=== PATIENT | female | born 1955 | race Caucasian/White ===

== ENCOUNTER 2017-07-16 15:30 | Outpatient (RCR) | payer OTHER, SELFPAY ==
[2016-07-18 13:25] VITALS: BP 156/72; PULSE 63; RESP 18; TEMP 36.7; O2SAT 98; BMI 23.6
--- NOTE | 2016-07-18 13:40 | ONC.PN.ESTAB ---
- Chief Complaint 6 mo f/u Office Visit: 07/18/16 - Office Visit: Treatment Visit Location of Care: [facility] DIAGNOSIS: Clinical stage IB (T2, N1mi, MX), ER/AZ negative, HER2 amplified, grade 3 or poorly differentiated infiltrating ductal carcinoma of the left breast. - History of Present Illness History of Present Illness: BIRD LEMUS is a very pleasant 61 F with a history for 1. Clinical stage IB (T2, N1mi, MX), ER/AZ negative, HER2 amplified, grade 3 or poorly differentiated infiltrating ductal carcinoma of the left breast. S/P MRM and sentinel node biopsy 06/20/2011 and TRAM flap reconstruction 06/26/2011. S/P TCH therapy x6 cycles completed 12/26/2011. Herceptin maintenance initiated 01/02/2012. Adjuvant Herceptin completed as of 08/27/2012. 2. Revision reconstructed TRAM flap left breast with power assisted lipoplasty and excision of painful fat necrosis 03/07/2012. 3. Revision of left breast reconstruction with excision of painful fat necrosis lateral aspect of TRAM flap rotation and mastopexy 06/17/2012. 4. Right breast reconstruction with mastopexy 06/17/2012. - Interval History Interval History: BIRD LEMUS is presenting to the clinic today for routine 6 mo f/u and denies any concerns r/t today's visit. Specifically, she denies any unintentional weight loss, decreased appetite, new bone pain, abd pain, N/V, changes in her bowel habits and swelling/pain of her extremities. Notes chronic non productive cough she attributes to her antihypertensives. - Past Medical/Social History Cancer History Cancer: Breast cancer Past Medical History Past Medical History: Anemia,Diabetes mellitus,Hypertension Past Surgical History Surgical: Mastectomy,Tonsillectomy,Tubal ligation Other: multiple reconstruction surgeries-L breast Family History Paternal Past Medical History: Unknown Maternal Past Medical History: Unknown Maternal History of Cancer: Stomach cancer Social History Social History: No changes Smoking Status Never smoker - Review of Systems Constitutional:: Denies: Fever, Sweats, Weight loss, Appetite change, Chills Cardiovascular:: Denies: Chest pain, Palpitations, Dyspnea on exertion, Orthopnea, PND, Shortness of breath Respiratory: Denies: Cough, Hemoptysis, Shortness of Breath, Wheezing Gastrointestinal:: Denies: Abdominal pain, Nausea, Vomiting, Diarrhea, Constipation, Hematochezia Genitourinary: Denies: Dysuria, Hematuria, Pneumaturia, Flank pain Musculoskeletal:: Denies: Back pain, Myalgia, Arthralgia Skin: Denies: Rash, Skin Changes, Wounds Neurological:: Denies: Headache, Dizziness, Visual changes, Tinnitus, Hearing loss Psychiatric: Denies: Anxiety, Depression, Homicidal Ideations, Suicidal Ideations - Physical Exam General: Alert, Oriented x3, No apparent distress HEENT: Atraumatic, PERRLA, EOMI, Normocephalic Oropharynx:: Dry mucosa Neck:: Supple, Trachea midline. Negative for: JVD, bilateral Cardiac:: Regular rate, Regular rhythm, Normal S1, Normal S2. Negative for: Murmur Lungs: Clear to auscultation, Excusion symmetrical. Negative for: Rhonchi, Wheezes Abdomen:: Bowel sounds x 4, Soft, Non-tender, Non-distended. Negative for: Hepatosplenomegaly Extremities:: Negative for: Cyanosis, Edema Neurological: Neuro grossly intact Skin:: Negative for: Lesions, Rash, Petechiae, Ecchymosis Psychiatric:: Appropriate affect Lymphatics:: Negative for: Cervical lymphadenopathy, Supraclavicular lymphadenopathy, Axillary lymphadenopathy Breast:: No abnormalities noted - Right-sided breast is normal in appearance. No nodularity or masses are palpable. The left-sided breast has a TRAM flap that appears normal in contours. No nodularity is appreciated. Around the left axillary tail, there is a slight fullness that is appreciated. No hard masses are identified. Pathology Data: PATHOLOGICAL DATA: Medications: Prescriptions This Visit Medication Instructions Recorded Type Cefadroxil Hydrate [Duricef] 500 mg PO BID #8 capsule 03/17/13 Rx Hydrocodone/Acetaminophen [Vicodin 1 - 2 tablet PO 4X/DAY PRN PRN #15 03/17/13 Rx 5-300 mg Tablet] tablet L. Acidophilus/Pectin, [place] 1 each PO BID #10 tablet 03/17/13 Rx [Acidophilus-Pectin Captab] - Assessment/Plan Assessment and Plan: Ms. Bird Lemus has been treated for HER2 positive, ER/AZ negative breast carcinoma. Unilateral right breast mammogram obtained in May BIRADS category 2. Clinical breast exam today benign. Labs were obtained last week at [facility] and are not available at this time, however I will obtain those for thorough review. She is otherwise not endorsing any s/sx concerning for recurrence at this time. Per patient request, she would like to follow on an annual basis, as she also undergoes breast exams per her pcp yearly and blood work every six months. Thus I have recommended she continue monthly BSE and promptly report any changes in the interim. Molly Ordoñez, EVA, [employer], AOCNP
[2017-07-16 15:27] VITALS: BP 132/71; PULSE 68; RESP 16; TEMP 36.8; O2SAT 99; BMI 22.4
--- NOTE | 2017-07-16 15:52 | ONC.OV1 ---
Subjective - Date of Service Date of Service:: 07/16/17 - Chief Complaint F/u for L breast cancer. - History of Present Illness History of Present Illness: BIRD CORONA is a very pleasant 61 F with a history for 1. Clinical stage IB (pT1c, N1mi, MX), ER/ND negative, HER2 amplified, grade 3 or poorly differentiated infiltrating ductal carcinoma of the left breast. S/P MRM and sentinel node biopsy 06/20/2011 and TRAM flap reconstruction 06/26/2011. S/P TCH therapy x6 cycles completed 12/26/2011. Herceptin maintenance initiated 01/02/2012. Adjuvant Herceptin completed as of 08/27/2012. 2. Revision reconstructed TRAM flap left breast with power assisted lipoplasty and excision of painful fat necrosis 03/07/2012. 3. Revision of left breast reconstruction with excision of painful fat necrosis lateral aspect of TRAM flap rotation and mastopexy 06/17/2012. 4. Right breast reconstruction with mastopexy 06/17/2012. She is on observation, comes in for follow up. - Past Medical/Social History Past Medical History Past Medical History: Anemia,Diabetes mellitus,Hypertension Cancer: Breast cancer Past Surgical History Surgical: Mastectomy,Tonsillectomy,Tubal ligation Other Surgical History: multiple reconstruction surgeries-L breast Family History Paternal Past Medical History: Unknown Maternal Past Medical History: Unknown Maternal History of Cancer: Stomach cancer Social History Social History: No changes Smoking Status Never smoker Review of Systems Constitutional:: Denies: Fever, Sweats, Weight loss, Appetite change, Chills Cardiovascular:: Denies: Chest pain, Palpitations, Dyspnea on exertion, Orthopnea, PND, Shortness of breath Respiratory: Denies: Cough, Hemoptysis, Shortness of Breath, Wheezing Gastrointestinal:: Denies: Abdominal pain, Nausea, Vomiting, Diarrhea, Constipation, Hematochezia Genitourinary: Denies: Dysuria, Hematuria, 15, Flank pain Musculoskeletal:: Denies: Back pain, Myalgia, Arthralgia Skin: Denies: Rash, Skin Changes, Wounds Neurological:: Denies: Headache, Dizziness, Visual changes, Tinnitus, Hearing loss Psychiatric: Denies: Anxiety, Depression, Homicidal Ideations, Suicidal Ideations Vital Signs Height 5 ft 3.5 in Weight: 58.513 kg Weight in Pounds 129.0 lbs Pulse Ox 99 Temperature 98.3 F Pulse Rate 68 Respiratory Rate 16 Blood Pressure 132/71 Blood Pressure Position Standing - Physical Exam General: Alert, Oriented x3, No apparent distress HEENT: Atraumatic, PERRLA, EOMI, Normocephalic Oropharynx:: Dry mucosa Neck:: Supple, Trachea midline. Negative for: JVD, bilateral Cardiac:: Regular rate, Regular rhythm, Normal S1, Normal S2. Negative for: Murmur Lungs: Clear to auscultation, Excusion symmetrical. Negative for: Rhonchi, Wheezes Abdomen:: Bowel sounds x 4, Soft, Non-tender, Non-distended. Negative for: Hepatosplenomegaly Skin:: Negative for: Lesions, Rash, Petechiae, Ecchymosis Psychiatric:: Appropriate affect, Euthymic Lymphatics:: Negative for: Cervical lymphadenopathy, Supraclavicular lymphadenopathy, Axillary lymphadenopathy Breast:: - - R brerast no masses, L breast implant. Diagnostic Data: 06/15/2017 Mammogram Right breast reviewed, negative. Assessment and Plan Left Breast Cancer stage IB(pT1c pN1mi M0), no evidence of disease clinically. Plan is to continue observation. Pt wants to follow up with her Primary Physician and be referred when she has problems. RTC PRN. Medications: Prescriptions This Visit Medication Instructions Recorded Insulin Lispro [Humalog KwikPen] 6 unit SQ ACHS 06/28/16 Sitagliptin Phos/Metformin HCl 50 - 500 mg PO DAILY 06/28/16 [Janumet 50-500 mg Tablet] Primary Care Provider: Sandra Whitt DO Referring Provider: - Problem List (1) History of breast cancer Status: Chronic Code Visit Office Visits / Consults: 41672 OV L3 Est
--- NOTE | 2017-07-16 16:06 | WMO.OV_ITS ---
Subjective - Date of Service Date of Service:: 07/16/17 - Chief Complaint F/u for L breast cancer. - History of Present Illness History of Present Illness: BIRD CORONA is a very pleasant 61 F with a history for 1. Clinical stage IB (pT1c, N1mi, MX), ER/MI negative, HER2 amplified, grade 3 or poorly differentiated infiltrating ductal carcinoma of the left breast. S/P MRM and sentinel node biopsy 06/20/2011 and TRAM flap reconstruction 2011. S/P TCH therapy x6 cycles completed 12/26/2011. Herceptin maintenance initiated 01/02/2012. Adjuvant Herceptin completed as of 08/27/2012. 2. Revision reconstructed TRAM flap left breast with power assisted lipoplasty and excision of painful fat necrosis 03/07/2012. 3. Revision of left breast reconstruction with excision of painful fat necrosis lateral aspect of TRAM flap rotation and mastopexy 06/17/2012. 4. Right breast reconstruction with mastopexy 06/17/2012. She is on observation, comes in for follow up. - Past Medical/Social History Past Medical History Past Medical History: Anemia,Diabetes mellitus,Hypertension Cancer: Breast cancer Past Surgical History Surgical: Mastectomy,Tonsillectomy,Tubal ligation Other Surgical History: multiple reconstruction surgeries-L breast Family History Paternal Past Medical History: Unknown Maternal Past Medical History: Unknown Maternal History of Cancer: Stomach cancer Social History Social History: No changes Smoking Status Never smoker Review of Systems Constitutional:: Denies: Fever, Sweats, Weight loss, Appetite change, Chills Cardiovascular:: Denies: Chest pain, Palpitations, Dyspnea on exertion, Orthopnea, PND, Shortness of breath Respiratory: Denies: Cough, Hemoptysis, Shortness of Breath, Wheezing Gastrointestinal:: Denies: Abdominal pain, Nausea, Vomiting, Diarrhea, Constipation, Hematochezia Genitourinary: Denies: Dysuria, Hematuria, 15, Flank pain Musculoskeletal:: Denies: Back pain, Myalgia, Arthralgia Skin: Denies: Rash, Skin Changes, Wounds Neurological:: Denies: Headache, Dizziness, Visual changes, Tinnitus, Hearing loss Psychiatric: Denies: Anxiety, Depression, Homicidal Ideations, Suicidal Ideations Vital Signs Height 5 ft 3.5 in Weight: 58.513 kg Weight in Pounds 129.0 lbs Pulse Ox 99 Temperature 98.3 F Pulse Rate 68 Respiratory Rate 16 Blood Pressure 132/71 Blood Pressure Position Standing - Physical Exam General: Alert, Oriented x3, No apparent distress HEENT: Atraumatic, PERRLA, EOMI, Normocephalic Oropharynx:: Dry mucosa Neck:: Supple, Trachea midline. Negative for: JVD, bilateral Cardiac:: Regular rate, Regular rhythm, Normal S1, Normal S2. Negative for: Murmur Lungs: Clear to auscultation, Excusion symmetrical. Negative for: Rhonchi, Wheezes Abdomen:: Bowel sounds x 4, Soft, Non-tender, Non-distended. Negative for: Hepatosplenomegaly Skin:: Negative for: Lesions, Rash, Petechiae, Ecchymosis Psychiatric:: Appropriate affect, Euthymic Lymphatics:: Negative for: Cervical lymphadenopathy, Supraclavicular lymphadenopathy, Axillary lymphadenopathy Breast:: - - R brerast no masses, L breast implant. Diagnostic Data: 06/15/2017 Mammogram Right breast reviewed, negative. Assessment and Plan Left Breast Cancer stage IB(pT1c pN1mi M0), no evidence of disease clinically. Plan is to continue observation. Pt wants to follow up with her Primary Physician and be referred when she has problems. RTC PRN. Medications: Prescriptions This Visit Medication Instructions Recorded Insulin Lispro [Humalog KwikPen] 6 unit SQ ACHS 06/28/16 Sitagliptin Phos/Metformin HCl 50 - 500 mg PO DAILY 06/28/16 [Janumet 50-500 mg Tablet] Primary Care Provider: Sandra Whitt DO Referring Provider: - Problem List (1) History of breast cancer Status: Chronic Code Visit Office Visits / Consults: [id number] OV L3 Est
== END 2017-08-14 08:41 | disposition home or self-care (01) ==
LOC: OMD 15:30
PROVIDERS: Visit Provider Nurse Practitioner Family
DX: C50.912 Malignant neoplasm of unspecified site of left female breast (principal)

== ENCOUNTER → 2019-02-25 14:47 | Outpatient (CLI) | payer OTHER, SELFPAY ==
[2019-02-11 14:45] VITALS: BMI 23.3
[2019-02-19 15:58] VITALS: BMI 23.3
--- NOTE | 2019-02-25 14:49 | ECHOD_ITS ---
Reason For Study: DYSPNEA/SOB Procedure This was a 2D Doppler, Color Flow transthoracic echocardiogram. The study was technically difficult. Due to breast surgery. Left Ventricle Normal size and thickness. Apical false tendon noted. The estimated ejection fraction is 65 %. Stage 1 diastolic dysfunction. No regional wall motion abnormalities noted. Right Ventricle Normal size and thickness. Normal systolic function. Atria Normal left atrium. Normal right atrium. Normal atrial septum. Mitral Valve The mitral valve is structurally normal. No prolapse or stenosis seen. Tricuspid Valve Normal tricuspid valve. Trivial tricuspid valve insufficiency. Right ventricular systolic pressure estimated to be 27 mmHg. Aortic Valve Normal aortic valve. Trisinus/trileaflet aortic valve. Pulmonic Valve Normal pulmonic valve. Great Vessels Normal aortic root. Normal arch. Normal inferior vena cava. Inferior vena cava collapse with sniff. Pericardium/Pleural No pericardial effusion. MMode/2D Measurements & Calculations LVIDd: 4.1 cm IVSd: 0.95 cm Ao root diam: 3.1 cm LVIDs: 2.3 cm LVPWd: 1.0 cm RVDd: 2.6 cm FS: 42.7 % LAV(MOD-bp): 36.1 ml LA A4 area: 12.6 cm2 LA dimension(2D): 3.9 cm LAV(MOD-bp) Indexed: 21.7 ml/m2 LAV(MOD-sp2): 36.8 ml LAV(MOD-sp4): 32.2 ml RA A4 area: 12.3 cm2 Time Measurements MV dec time: 0.16 sec Doppler Measurements & Calculations MV E max jony: 74.8 cm/sec Lat Peak E' Jony: 8.3 cm/sec Med Peak E' Jony: 6.5 cm/sec MV A max jony: 95.9 cm/sec E/E' lat: 9.0 E/E' med: 11.6 MV E/A: 0.78 Ao V2 max: 111.0 cm/sec LV V1 max: 87.9 cm/sec PA V2 max: 86.6 cm/sec Ao max P.9 mmHg LV V1 max P.1 mmHg TR max jony: 235.8 cm/sec TR max P.2 mmHg Interpretation Summary The estimated ejection fraction is 65 %. Stage 1 diastolic dysfunction. Trivial tricuspid valve insufficiency. Right ventricular systolic pressure estimated to be 27 mmHg. Compared to echo report dated 08/01/2012, no appreciable changes noted. Ordering Physician: Desean Roca Referring Physician: Sachin Banks Performed By: Mariel Castro RDCS, RVT
== END ==
PROVIDERS: Family Provider Family Medicine; PCP Family Medicine; Referring Provider Internal Medicine Cardiovascular Disease; Visit Provider Internal Medicine Cardiovascular Disease
DX: R06.02 Shortness of breath (principal); E78.5 Hyperlipidemia, unspecified; I10 Essential (primary) hypertension; I35.9 Nonrheumatic aortic valve disorder, unspecified
CPT/HCPCS: 93306

== ENCOUNTER → 2019-03-04 09:26 | Outpatient (CLI) | payer MEDICARE, SELFPAY ==
[2019-02-11 14:45] VITALS: BMI 23.3
[2019-02-19 15:58] VITALS: BMI 23.3
--- NOTE | 2019-03-04 09:30 | STEWCON_ITS ---
Reason For Study: Abnormal Calcium Score; SOB; Chest Pain Stress Results Protocol: Raz Protocol WITH DEFINITY Maximum Predicted HR: 156 bpm Target HR: 133 bpm % Maximum Predicted HR: 84 % DurationHeart Rate Stage (mm:ss) (bpm) BP Comment Baseline 57 132/74No Chest Pain; 2 ML Diluted Definity Given Raz Protocol Stage I 3:00 88 140/70No Chest Pain Raz Protocol Stage II 3:00 93 138/72No Chest Pain Raz Protocol Stage III 3:00 122 146/64No Chest Pain; Mild Dyspnea Raz Protocol Stage IV 0:30 131 / No Chest Pain; Mild to Moderate Dyspnea Recovery 66 138/78No Chest Pain Stress Duration: 9:30 mm:ss Maximum Stress HR: 131 bpm METS: 11 Baseline Echocardiogram Findings The estimated ejection fraction is 65 %. Stress Echo Wall motion Data Resting WM Intermediate WM Stress WM Resting Wall Motion Wall Motion Stress No regional wall motion No regional wall motion abnormalities noted. abnormalities noted. EKG Data The baseline ECG displays normal sinus rhythm. The patient exercised according to the regular Raz protocol for a total duration of 9:30. The maximum heart rate attained was 134 beats per minute. This was 85% of maximum predicted heart rate. The patient exercised into stage 4 of the Raz protocol. No clinical angina was noted. At peak exercise, upsloping ST changes only were noted, which did not meet the criteria for ischemia. Interpretation Summary The estimated ejection fraction is 65 %. Normal, adequate, treadmill echocardiogram. Negative for ischemia by EKG and echocardiographic criteria. No anginal symptoms noted. Rare PAC noted during recovery. Appropriate blood pressure response to exercise. Average exercise capacity for age. Patient tolerated procedure well, no complications. Decreased sensitivity due to poor echo windows requiring Definity agent. The study was technically difficult. Contrast injection was performed. Ordering Physician: Desean Roca Referring Physician: Sachin Banks Performed By: Mariel Castro RDCS, RVT
== END ==
PROVIDERS: Family Provider Family Medicine; PCP Family Medicine; Referring Provider Internal Medicine Cardiovascular Disease; Visit Provider Internal Medicine Cardiovascular Disease
DX: R06.00 Dyspnea, unspecified (principal); E11.9 Type 2 diabetes mellitus without complications; I10 Essential (primary) hypertension; I35.9 Nonrheumatic aortic valve disorder, unspecified; R93.1 Abnormal findings on diagnostic imaging of heart and coronary circulation
CPT/HCPCS: 93017; 93350; Q9957; A4216; C8928

== ENCOUNTER → 2019-05-08 09:01 | Outpatient (CLI) | payer MEDICARE, SELFPAY ==
[2019-05-07 14:54] VITALS: BMI 23.3
== END ==
PROVIDERS: PCP Family Medicine; Visit Provider Nurse Practitioner Family
DX: J02.9 Acute pharyngitis, unspecified (principal)
CPT/HCPCS: 87070

== ENCOUNTER → 2019-08-06 07:00 | Outpatient (CLI) | payer MEDICARE, SELFPAY ==
[2019-08-04 09:31] VITALS: BMI 22.3
[2019-08-06 08:02] LABS: AST(SGOT) 18 U/L (15-37); Alanine Aminotransfer ALT/SGPT 21 U/L (13-56); Albumin, Serum 3.9 g/dL (3.2-5.0); Alkaline Phosphatase 88 U/L (45-117); Bilirubin, Direct 0.24 mg/dL (0.00-0.30); Cholesterol 144 mg/dL (200); Globulin 3.8 g/dL (2.2-4.2); High Density Lipoprotein 56 mg/dL; Protein, Total 7.7 g/dL (6.4-8.2); Triglycerides 90 mg/dL; Very Low Density Lipoprotein 18 mg/dL (5-40)
== END ==
PROVIDERS: PCP Nurse Practitioner Family; Referring Provider Internal Medicine Cardiovascular Disease; Visit Provider Internal Medicine Cardiovascular Disease
DX: E78.5 Hyperlipidemia, unspecified (principal)
CPT/HCPCS: 36415; 80061; 80076

== ENCOUNTER → 2019-11-18 07:59 | Outpatient (CLI) | payer MEDICARE, SELFPAY ==
[2019-08-04 09:31] VITALS: BMI 22.3
--- NOTE | 2019-11-18 08:13 | BD_ITS ---
STUDY: DUAL ENERGY X-RAY ABSORPTIOMETRY / DXA REASON FOR EXAM: Female, 64 years old. Age of steve 48. Pat is 124.7# and 63.25 and quot;. Type II diabetic and takes insulin, Proceca and janumet. Her BP meds have a diuretic in them. Exercises a little. Hx of left breast CA with a mastectomy. TECHNIQUE: Bone Mineral Density (BMD) measurements of lumbar spine and bilateral hips were obtained. COMPARISON: None. FINDINGS: Lumbar Spine (L1-L4): g/cm2 (1.169) / T-score (0.0) / Z-score (1.6) Findings are suggestive of normal bone density with a low fracture risk. Left Femur Total: g/cm2 (1.186) / T-score (1.4) / Z-score (2.6) Left Femoral Neck: g/cm2 (1.146) / T-score (0.8) / Z-score (2.3) Right Femur Total: g/cm2 (1.265) / T-score (2.0) / Z-score (3.3) Right Femoral Neck: g/cm2 (1.203) / T-score (1.2) / Z-score (2.7) Right Forearm: g/cm2 ( ) / T-score ( ) / Z-score ( ) Left Forearm: g/cm2 ( ) / T-score ( ) / Z-score ( ) BD/Dexa Bone Density Study IMPRESSION: The patient is considered normal as outlined below according to World Dimitri Organization (WHO) criteria with a low fracture risk. . Reference Information: The T-score is the number of standard deviations above or below the standard which is normal for young adults at their peak bone mineral density. The World Health Organization (WHO) interprets the T-scores as follows: Above -1 Normal bone density Between -1 and -2.5 Osteopenia Equal to / or below -2.5 Osteoporosis As a practical clinical guideline, osteopenia may be graded as follows: Mild -1 through -1.5 Moderate -1.6 through -2.0 Severe -2.1 through -2.4 The Z-score is the number of standard deviations above or below age-matched controls. A Z-score of less than -1.5 would be considered abnormal. References: 1. NIH Osteoporosis and Related Bone Diseases http://www.osteo.org 2. International Society for Clinical Densitometry http://www.iscd.org 3. National Osteoporosis Foundation http://www.nof.org Electronically Signed: Jama Castillo, at 10:51 EDT , Service support ,
== END ==
PROVIDERS: PCP Nurse Practitioner Family; Referring Provider Nurse Practitioner Family; Visit Provider Nurse Practitioner Family
DX: Z78.0 Asymptomatic menopausal state (principal); Z13.820 Encounter for screening for osteoporosis
CPT/HCPCS: 77080

== ENCOUNTER → 2020-03-17 07:08 | Outpatient (CLI) | payer MEDICARE, SELFPAY ==
[2020-03-04 15:21] VITALS: BMI 21.9
--- NOTE | 2020-03-17 12:31 | STRESSREP_ITS ---
Stress Test Report Date: 03-17-2020 Procedure: Exercise tolerance test/imaging study Indications: Chest pain; CAD Consent: Per the patient Procedure: The patient exercised on a Raz protocol for 8 minutes completing Stage II and 2 minutes of Stage III achieving a peak heart rate of 136 bpm (88% predicted maximal heart rate) with a peak blood pressure 140/76 mmHg and a peak MET capacity of 10 METs. The baseline ECG demonstrated sinus bradycardia. The peak exercise ECG demonstrated approximately 1.0 mm horizontal/upsloping ST segment depression in leads II, III, aVF, and V5 and V6 with subsequent resolution towards baseline in recovery. There was a rare PVC pretest and a rare PAC during exercise. The functional capacity was considered good. There was no complaint of chest discomfort during exercise or recovery. The examination was discontinued secondary to dyspnea. Impression: 1. Technically adequate (percent predicted maximal heart rate greater than 85%) exercise tolerance test 2. Peak exercise ECG with approximately 1.0 mm horizontal/upsloping ST segment depression in leads II, III, aVF, and V5 and V6 with subsequent resolution towards baseline in recovery 3. There was a rare PVC pretest and a rare PAC during exercise 4. Nuclear images pending Myocardial perfusion imaging study: Technique: The patient was injected with 11.1 mCi of technetium 99m Cardiolite and subsequently rest SPECT Cardiolite nuclear imaging was obtained in the horizontal long, vertical long, and short axis views. The patient exercised on a Raz protocol for 8 minutes completing Stage II and 2 minutes of Stage III achieving a peak heart rate of 136 bpm (88% predicted maximal heart rate) with a peak blood pressure 140/76 mmHg and a peak MET capacity of 10 METs. The patient was injected with 32.8 mCi of technetium 99m Cardiolite and subsequently stress SPECT Cardiolite nuclear imaging was obtained in the horizontal long, vertical long, and short axis views. A gated Cardiolite study at peak stress was obtained. Interpretation: Rest and stress SPECT Cardiolite nuclear imaging status post realignment, normalization, and attenuation correction, demonstrates the appearance of relative uniform tracer uptake and myocardial perfusion appearing within normal limits. There is end systolic thickening and brightening. The gated Cardiolite study demonstrates myocardial thickening and inward wall motion. The reported LVEF is 77%. Impression: 1. Rest and stress SPECT Cardiolite nuclear imaging demonstrate relative uniform tracer uptake and myocardial perfusion appearing within normal limits. 2. The gated Cardiolite study reports an LVEF of 77%. This note was generated with Aimetisation software. It may contain incorrect words, spelling, and punctuation that were not noted in checking the note before signing.
== END ==
PROVIDERS: PCP Nurse Practitioner Family; Referring Provider Physician Assistant Medical; Visit Provider Physician Assistant Medical
DX: I25.10 Atherosclerotic heart disease of native coronary artery without angina pectoris (principal); M21.161 Varus deformity, not elsewhere classified, right knee; R93.1 Abnormal findings on diagnostic imaging of heart and coronary circulation
CPT/HCPCS: 78452; 93017; A9500; A4216

== ENCOUNTER → 2024-01-17 | Outpatient (CLI) | payer MEDICARE, SELFPAY ==
[2024-01-17 16:45] LABS: Microalbumin,Random Urine 34.1 mg/L (NO RANGE EST.); Microalbumin:Creatinine Ratio 11.4 mg/g CRE (<30 mg/g CRE)
== END | disposition home or self-care (01) ==
LOC: POLAB3 15:01
PROVIDERS: PCP Nurse Practitioner Family; Visit Provider Internal Medicine Nephrology
DX: N18.31 Chronic kidney disease, stage 3a (principal)
CPT/HCPCS: 82043; 82570